=== PATIENT | male | born 1965 | race Caucasian/White ===

== ENCOUNTER 2018-01-04 09:55 | Emergency (ER) | payer SELFPAY ==
[2018-01-04 10:00] VITALS: BP 135/95; PULSE 66; RESP 16; TEMP 98.2; O2SAT 96
[2018-01-04] MEDS ORDERED: PROPARACAINE 0.5% 15 ML OPHT DROP ONE (10:04)
[2018-01-04] MEDS ORDERED: FLUORESCEIN SODIUM 1 MG STRIP OP ONE ×2 (10:04→10:09)
[2018-01-04] MEDS ORDERED: PROPARACAINE 0.5% 15 ML OPHT DROP OP ONE (10:09)
--- NOTE | 2018-01-04 10:26 | EDPHY ---
H & P Time Seen by Provider: 01/04/18 10:05 HPI/ROS: CHIEF COMPLAINT: Right eye discomfort possible foreign body HISTORY OF PRESENT ILLNESS: 52-year-old male complaining of foreign body sensation right eye for the past 7 days per he was working on a construction project, was wearing safety glasses.. Feels as if there is a foreign object in his right upper lid. PHYSICAL EXAM (Prior to examination, patient consented to physical exam, hands were washed and my usual and customary physical exam procedures followed) 1) GENERAL: Well-developed, well-nourished, alert and oriented. Appears to be in no acute distress. 2) HEAD: Normocephalic 3) OCULAR EXAM: Visual Acuity: noted from Nurse's notes. Pupils:equal round and reactive to light EOMI Lids: no edema or swelling, upper and lower lids were everted and no foreign bodies were visualized, no areas of increased fluorescein uptake. Skin: no proptosis, no periorbital erythema or swelling, no vesicles, no pain with extraocular movements. Conjunctivae: not injected, no discharge, negative Sonia test. A fiber foreign body is removed as well as black speck with sterile Q-tip Cornea: exam with fluorescein shows no areas of increased uptake, Anterior chamber:normal, no hyphema or hypopyon 4) LUNGS: Breathing comfortably. Smoking Status: Never smoked Constitutional: Initial Vital Signs Temperature (C) 36.8 C 01/04/18 09:58 Heart Rate 66 01/04/18 09:58 Respiratory Rate 16 01/04/18 09:58 Blood Pressure 135/95 H 01/04/18 09:58 O2 Sat (%) 96 01/04/18 09:58 O2 Delivery Mode Room Air Allergies/Adverse Reactions: No Known Allergies Allergy (Unverified 01/04/18 09:57) Home Medications: Medication Instructions Recorded NK [No Known Home Meds] 01/04/18 MDM/Departure - MDM Medications Given: Discontinued Medications Fluorescein Sodium (Kagow-L-Fcsje) 1 mg OP EDNOW ONE Stop: 01/04/18 10:10 Last Admin: 01/04/18 10:11 Dose: Not Given Proparacaine HCl (Alcaine 0.5%) 1 drops OP EDNOW ONE Stop: 02/03/18 10:10 Last Admin: 01/04/18 10:12 Dose: Not Given Differential Diagnosis: In no particular order including but not limited to corneal abrasion, foreign body, intraorbital foreign body - Depart Disposition: Home, Routine, Self-Care Clinical Impression: Orbital foreign body Qualifiers: Encounter type: initial encounter Laterality: right Qualified Code(s): S05.41XA - Penetrating wound of orbit with or without foreign body, right eye, initial encounter Condition: Good Instructions: Eye Foreign Body (ED) Referrals: Evaristo Perez MD [Medical Doctor] - As per Instructions
== END 2018-01-04 11:02 | disposition home or self-care (01) ==
DX: S05.41XA Penetrating wound of orbit with or without foreign body, right eye, initial encounter (principal); X58.XXXA Exposure to other specified factors, initial encounter; Y92.89 Other specified places as the place of occurrence of the external cause; Y99.0 Civilian activity done for income or pay; Y93.89 Activity, other specified